=== PATIENT | female | born 1990 | race Caucasian/White ===

== ENCOUNTER 2017-10-02 21:50 | Emergency (ER) | payer OTHER ==
[~2017-10-02] VITALS: Ht 154.9 cm; Wt 72.6 kg
[~2017-10-02 21:50] MED LIST: ATIVAN0.5 MG PO; CIPRO 500MG TA500 MG PO; FLAG500 PO; HYDROCODONE/ACE1 TA1 PO; LEVSIN/SL0.125 MG SL; PERCOCET 325 MG1 TA2 PO; PERCOCET 5-3251 EACH PO; PREDNISONE 20MG20 MG PO; ZOFRAN ODT4 M1 SL; ZOFRAN4 M1 SL
--- NOTE | 2017-10-02 21:58 | ED GI/GU/ABDOMINAL COMPLAINT ---
History of Present Illness General Chief Complaint: Abdominal Pain/Flank Pain Stated Complaint: 10 WEEKS PREG, RIGHT SIDED ABD PAIN Source: patient Exam Limitations: no limitations Vital Signs & Intake/Output Vital Signs & Intake/Output Vital Signs Date Time Temp Pulse Resp B/P B/P Pulse O2 O2 Flow FiO2 Mean Ox Delivery Rate 10/026 98.9 108 18 151/92 96 Room Air ED Intake and Output 10/03 0000 10/02 1200 Intake Total Output Total 250 Balance -250 Output, 50 Emesis Output, Urine 200 Patient 160 lb Weight Weight Reported by Patient Measurement Method Allergies Coded Allergies: Sulfa (Sulfonamide Antibiotics) (HIVES 02/12/17) amoxicillin (HIVES 02/12/17) azithromycin (HIVES 02/12/17) cefixime (HIVES 02/12/17) Reconcile Medications Ondansetron (Zofran Odt) 4 MG TAB.RAPDIS 1 TAB SL TID nausea Oxycodone HCl/Acetaminophen (Percocet 5-325 MG Tablet) 5 MG-325 MG TABLET 1-2 TAB PO Q6P PRN pain Triage Note: PT TO ER C/C RLQ PAIN X 30 MINS, +N/V. PAIN RADIATING TO BACK. PT IS 10 WEEKS D/D 04/27/2018. OBGYN: [facility] Triage Nurses Notes Reviewed? yes ? y Is pt currently ? No Onset: Abrupt Duration: minute(s): (45) Timing: no prior history Quality/Severity: sharpness, stabbing Severity Numbers: 10 Location: right lower quadrant Radiation: flank Activities at Onset: none Prior Abdominal Problems: none Past Sexual History: Unobtainable at this time Sexually Active: Yes Last Time You Were Sexual: less than 2 months ago Sexual Orientation: Heterosexual Use of Protection: No Modifying Factors: Worsens With: movement, palpation. HPI: Patient is a 27-year-old female currently 10 weeks with first presenting to the emergency Department chief complaint sudden onset of her lower quadrant abdominal pain that radiates to the right flank going on for the past 45 minutes. Positive nausea with vomiting. No fevers, positive chills. Child taking diglegis with little to no relief and nausea. see womens health. No blood in emesis. Denies diarrhea. No history of similar symptoms in the past. Denies any urinary frequency urgency dysuria or hematuria. (Miriam Reynaga) Past History Travel History Traveled to [place] past 21 day No Medical History Any Pertinent Medical History? 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 Hx Contributory? No (Miriam Reynaga) Review of Systems Review of Systems Constitutional: Reports: no symptoms. Comments Review of systems: See HPI, All other systems negative. Constitutional, no fever or weight loss HEENT: No visual changes no sore throat no congestion Cardiovascular: No chest pain ,palpitation Skin, no jaundice no rashes Respiratory: No dyspnea cough sputum or hemoptysis GI: No diarrhea : No dysuria No hematuria Muscle skeletal: no back pain, no neck pain, Neurologic: No numbness no confusion no headaches Psych: No stress anxiety or depression,. Heme/endocrine: No bruising no bleeding no polyuria or polydipsia Immunology: No splenectomy or history of AIDS (Miriam Reynaga) Physical Exam Physical Exam General Appearance: awake, anxious, mild distress Gastrointestinal: soft, tenderness Comments: Well-developed well-nourished person in mild distress HEENT: Atraumatic, normocephalic Neck: Normal inspection Back: Nontender, no CVA tenderness. Cardiovascular: Regular rate and rhythms no murmurs rubs or gallops Respiratory: Chest nontender. No respiratory distress.breath sounds clear to auscultation bilaterally Abdomen: Soft, significant tenderness to palpation over the right flank, right lower quadrant with guarding, nondistended, no appreciable organomegaly. Normal bowel sounds. No ascites Extremity: No edema Neuro: Alert oriented x3 Skin: No appreciable rash on exposed skin, skin is warm and dry. Psych: Mood and affect is normal, memory and judgment is normal. Core Measures ACS in differential dx? No Sepsis Present: No Sepsis Focused Exam Completed? No (Miriam Reynaga) Progress Differential Diagnosis: appendicitis, ovarian cyst, ovarian torsion, UTI/pyelo, ovarian origin Plan of Care: Orders Procedure Date/time Status URINALYSIS 10/02 2157 Complete HUMAN BETA HCG TITRE 10/02 2157 Complete COMPREHENSIVE METABOLIC PANEL 10/02 2157 Complete CBC WITHOUT DIFFERENTIAL 10/02 2157 Complete Current Medications Sig/Sandra Start time Last Medication Dose Stop Time Status Admin Ondansetron HCl 4 MG ONCE ONE 10/03 29 UNVr 10/03 (Zofran) 10/03 0031 0045 Sodium Chloride 1,000 ML BOLUS ONE 10/03 29 UNVr 10/03 (Normal Saline 0.9%) 10/03 0129 0045 Laboratory Tests 10/02/172221: Urine Color YEL, Urine Clarity CLEAR, Urine pH 6.0, Ur Specific [place] 1.025, Urine Protein NEG, Urine Ketones NEG, Urine Nitrite NEG, Urine Bilirubin NEG, Urine Urobilinogen 0.2, Ur Leukocyte Esterase NEG, Ur Microscopic EXAM NOT REQUIRED, Urine Hemoglobin NEG, Urine Glucose NEG 10/02/172204: Anion Gap 14, Estimated GFR > 60, BUN/Creatinine Ratio 16.0, Glucose 89, Calcium 10.1, Total Bilirubin 0.3, AST 18, ALT 30, Alkaline Phosphatase 57, Total Protein 7.1, Albumin 4.2, Globulin 2.9, Albumin/Globulin Ratio 1.4, Beta HCG, Quant 75717.0, CBC w Diff NO MAN DIFF REQ, RBC 4.40, MCV 89.1, MCH 30.6, MCHC 34.4, RDW 12.3, MPV 7.4, Gran % 65.0, Lymphocytes % 26.9, Monocytes % 7.1, Eosinophils % 0.7, Basophils % 0.3, Absolute Granulocytes 7.7 H, Absolute Lymphocytes 3.2, Absolute Monocytes 0.8 H, Absolute Eosinophils 0.1, Absolute Basophils 0 On arrival patient in mild distress, she does have right lower quadrant pain is reproducible on exam. Patient afebrile. No CVA tenderness on exam. Considering appendicitis, ovarian torsion or cyst, kidney stone. Patient will go for ultrasound to rule out ovarian torsion. IV fluids and IV Zofran initiated. 10/03/2017 12:41:01 AM and reevaluation patient appears much more calm, no longer dry heaving. Patient still has mild to moderate reproducible pain in the right lower quadrant with palpation. Slight elevation in white blood cell count to 11. No shift. Pending ultrasound results at this time. Diagnostic Imaging: Viewed by Me: Ultrasound. Discussed w/RAD: Ultrasound. Initial ED EKG: none Hand-Off Endorsed To: Go Oliveros MD Endorsed Time: 99 Pending: ultrasound (Soren ALVARADO,Miriam) Radiology Impression: PATIENT: PRATIBHA BULLARD PRESENT AGE: 27 PATIENT ACCOUNT NO: [id number] : 92 LOCATION: [facility] ORDERING PHYSICIAN: Miriam ALVARADO SERVICE DATE: 10/02/17 EXAM TYPE: US - US TRANSVAG EXAMINATION: US TRANSVAGINAL CLINICAL INFORMATION: Abdominal pain. COMPARISON: None TECHNIQUE: Transabdominal and endovaginal sonographic evaluation of the pelvis. Endovaginal examination performed for improved visualization due to bowel gas. Doppler evaluation with spectral analysis performed. FINDINGS: The uterus measures 9 x 7.3 x 7.4 cm. There is an intrauterine gestational sac. A pole is present. Normal movements are seen. No yolk sac present. There is a crown-rump length of 3.39 cm corresponding to a gestational age by ultrasound of 10 weeks 3 days. This yields an estimated date of delivery of 04/27/2018. Normal heart rate at 167 bpm. Both ovaries are visualized, although visualization of the left ovary is limited due to bowel gas. The right ovary measures 3 x 2.9 x 2.2 cm. The left ovary measures 3 x 2 x 2 cm. Normal arterial and venous spectral waveforms of the right ovary. Limited evaluation of the left ovarian vasculature. No free fluid in the cul-de-sac. IMPRESSION: 1. Single live intrauterine . Gestational age by ultrasound of 10 weeks 3 days. 2. Limited evaluation of the left ovary due to bowel gas. Symmetric size of the ovaries. The right ovarian vasculature is unremarkable. The left ovarian vasculature is not well demonstrated. Given the symmetry of size of the ovaries, torsion is unlikely. DICTATED BY: Behzad Pulliam MD DATE/TIME DICTATED:10/03/1752 TAXATION INSPECTOR:SMOOTH DATE/TIME TRANSCRIBED:10/03/1752 CONFIDENTIAL, DO NOT COPY WITHOUT APPROPRIATE AUTHORIZATION. <Electronically signed in Other Vendor System> SIGNED BY: Behzad Pulliam MD 10/03/1758 (Domo SINGH,Go Stuart) Departure Departure Condition: Stable Clinical Impression Primary Impression: Abdominal pain Qualifiers: Abdominal location: right lower quadrant Qualified Code: R10.31 - Right lower quadrant pain Referrals: Eligio SINGH,Theron Springer (PCP/Family) Departure Forms: Customer Survey General Discharge Information (Miriam Reynaga) Departure Disposition: OTHER [facility] (AC[facility]) PA/ACADEMIC RECORDS SPECIALIST Co-Sign Statement Statement: ED Attending supervision documentation- [X] I saw and evaluated the patient. I have also reviewed all the pertinent lab results and diagnostic results. I agree with the findings and the plan of care as documented in the PA's/ACADEMIC RECORDS SPECIALIST's documentation. [X] I have reviewed the ED Record and agree with the PA's/ACADEMIC RECORDS SPECIALIST's documentation. [] Additions or exceptions (if any) to the PAs/ACADEMIC RECORDS SPECIALIST's note and plan are summarized below: [PT TO BE TRANSFERED TO [facility] FOR MRI AND SURGICAL CONSULTATION. D/W DR. HARMAN, [facility].] (Domo SINGH,Go Stuart)
[2017-10-02 22:44] LABS: ABSOLUTE BASOPHIL COUNT 0 /CUMM (0.0-0.2); ABSOLUTE EOSINOPHIL COUNT 0.1 /CUMM (0.0-0.7); ABSOLUTE GRANULOCYTE CT 7.7 /CUMM (1.4-6.5); ABSOLUTE LYMPH COUNT 3.2 /CUMM (1.2-3.4); ABSOLUTE MONOCYTE COUNT 0.8 /CUMM (0.10-0.60); BASOPHIL % 0.3 % (0.0-2.0); EOSINOPHIL % 0.7 % (0-5); HEMATOCRIT 39.2 % (37-47); MEAN CORPUSCULAR HGB 30.6 PG (27.0-31.0); MEAN CORPUSCULAR HGB CONC 34.4 G/DL (33.0-37.0); MEAN CORPUSCULAR VOLUME 89.1 FL (81.0-99.0); MEAN PLATELET VOLUME 7.4 FL (7.4-10.4); PLATELET COUNT 275 /CUMM (130-400); RBC DISTRIBUTION WIDTH 12.3 % (11.5-14.5); WHITE BLOOD CELL COUNT 11.8 /CUMM (4.8-10.8)
--- NOTE | 2017-10-03 00:59 | ULTRASOUND REPORT ---
EXAMINATION: US TRANSVAGINAL CLINICAL INFORMATION: Abdominal pain. COMPARISON: None TECHNIQUE: Transabdominal and endovaginal sonographic evaluation of the pelvis. Endovaginal examination performed for improved visualization due to bowel gas. Doppler evaluation with spectral analysis performed. FINDINGS: The uterus measures 9 x 7.3 x 7.4 cm. There is an intrauterine gestational sac. A pole is present. Normal movements are seen. No yolk sac present. There is a crown-rump length of 3.39 cm corresponding to a gestational age by ultrasound of 10 weeks 3 days. This yields an estimated date of delivery of 04/27/2018. Normal heart rate at 167 bpm. Both ovaries are visualized, although visualization of the left ovary is limited due to bowel gas. The right ovary measures 3 x 2.9 x 2.2 cm. The left ovary measures 3 x 2 x 2 cm. Normal arterial and venous spectral waveforms of the right ovary. Limited evaluation of the left ovarian vasculature. No free fluid in the cul-de-sac. IMPRESSION: 1. Single live intrauterine . Gestational age by ultrasound of 10 weeks 3 days. 2. Limited evaluation of the left ovary due to bowel gas. Symmetric size of the ovaries. The right ovarian vasculature is unremarkable. The left ovarian vasculature is not well demonstrated. Given the symmetry of size of the ovaries, torsion is unlikely.
[2017-10-03 01:34] VITALS: BP 123/64
[2017-10-03] MEDS ORDERED: PRENATAL MULTI1 EAC2 PO (01:37)
== END 2017-10-03 01:48 | disposition short-term general hospital (02) ==
LOC: ERH 21:50
PROVIDERS: Physician Assistant
DX: O99.89 Other specified diseases and conditions complicating pregnancy, childbirth and the puerperium (principal); R10.30 Lower abdominal pain, unspecified; Z3A.10 10 weeks gestation of pregnancy
CPT/HCPCS: 76817; 81003; 96361; 96374; 96376; J2405

== ENCOUNTER 2018-04-30 11:50 | Inpatient (IN) | payer OTHER ==
[~2018-04-30] VITALS: Ht 154.9 cm; Wt 83.9 kg
[~2018-04-30 11:50] MED LIST changes: +PRENATAL MULTI1 EAC2 PO
[2018-04-30 14:36] LABS: ABSOLUTE BASOPHIL COUNT 0 /CUMM (0.0-0.2); ABSOLUTE EOSINOPHIL COUNT 0 /CUMM (0.0-0.7); ABSOLUTE GRANULOCYTE CT 8.8 /CUMM (1.4-6.5); ABSOLUTE LYMPH COUNT 2.2 /CUMM (1.2-3.4); ABSOLUTE MONOCYTE COUNT 0.8 /CUMM (0.10-0.60); BASOPHIL % 0.3 % (0.0-2.0); EOSINOPHIL % 0.3 % (0-5); HEMATOCRIT 36.5 % (37-47); MEAN CORPUSCULAR HGB 28.9 PG (27.0-31.0); MEAN CORPUSCULAR HGB CONC 33.6 G/DL (33.0-37.0); MEAN CORPUSCULAR VOLUME 85.9 FL (81.0-99.0); MEAN PLATELET VOLUME 8.8 FL (7.4-10.4); PLATELET COUNT 216 /CUMM (130-400); RBC DISTRIBUTION WIDTH 13.9 % (11.5-14.5); RED BLOOD CELL CT 4.25 /CUMM (4.20-5.40); WHITE BLOOD CELL COUNT 11.9 /CUMM (4.8-10.8)
--- NOTE | 2018-04-30 16:44 | History & Physical ---
General Information and HPI MD Statement: I have seen and personally examined PRATIBHA BULLARD and documented this H&P. The patient is a 27 year old female at [40] weeks and [3] days gestation who presented with a chief complaint of [LOF]. Source of Information: patient Exam Limitations: no limitations History of Present Illness: 27YO, 40 3/7wks, c/o LOF since 10:30AM. with some cramping pain. denies VB , reports GFM. amnisure positive. care started at 7 + wks. complicated by polyhydramnios, GBS positive Allergies/Medications Allergies: Coded Allergies: hyoscyamine (From URIBEL) (Mild, pt states mild does not remember 04/30/18) methenamine (From URIBEL) (Mild, pt states mild does not remember 04/30/18) methylene blue (From URIBEL) (Mild, pt states mild does not remember 04/30/18) salicylates (From URIBEL) (Mild, pt states mild does not remember 04/30/18) sodium phosphate (From URIBEL) (Mild, pt states mild does not remember 04/30/18) Sulfa (Sulfonamide Antibiotics) (HIVES 02/12/17) amoxicillin (HIVES 02/12/17) azithromycin (HIVES 02/12/17) cefixime (HIVES 02/12/17) Home Med list Pnv No.122/Iron/Folic Acid ( Multi Tablet) 27 MG IRON-800 MCG TABLET 1 TAB PO DAILY (Reported) 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 Psychosocial History Where do you live? Home Smoking Status: Never Smoked ETOH Use: denies use Illicit Drug Use: denies illicit drug use Review of Systems Review of Systems Constitutional: Reports: no symptoms. EENTM: Reports: no symptoms. Cardiovascular: Reports: no symptoms. Respiratory: Reports: no symptoms. GI: Reports: no symptoms. Genitourinary: Reports: see HPI. Musculoskeletal: Reports: no symptoms. Skin: Reports: no symptoms. Neurological/Psychological: Reports: no symptoms. Hematologic/Endocrine: Reports: no symptoms. Immunologic/Allergic: Reports: no symptoms. All Other Systems: Reviewed and Negative Exam & Diagnostic Data Last 24 Hrs of Vital Signs/I&O Intake & Output 04/30 1600 04/30 0800 04/30 0000 Intake Total Output Total Balance Patient 83.915 kg Weight Obstetric Exam Wgt Gained During : 28 lbs Pelvimetry: adequate Dilation (cm): 2 Effacement (%): 70 Station: -2 Membranes: SROM Fluid: clear Fundal Height (cm): 40 Multiple Gestation? No Contractions: irregular Infant #1 - FHR Baseline: 140 Category: 1 Estimated Weight: 8lb4oz Presentation: vertex Patient for Induction? No Physical Exam: VSS General: NAD Abdomen; gravid, soft, nontender. Ext: DCT (-) Labs Blood Type & Rh: O positive Antibody Screen: negative Hct/Hgb & Platelets #1: 13.6/41.5%,PLT [id number] Hct/Hgb & Platelets #2: 11.5/37.5%,[id number] Rubella: non immune VDRL #1: negative VDRL #2: negative HbsAg: negative HIV #1: negative HIV #2 negative 1 Hr P Group B Strep: positive Initial Ultrasound: IUP at 7 6/7wks Anatomy Ultrasound: nl Ultrasound for EFW: 8lb4oz on 04/28/2018 Genetic Testing: nl Last 24 Hrs of Labs/Romero: Laboratory Tests 04/30/18 1425: CBC w Diff NO MAN DIFF REQ, RBC 4.25, MCV 85.9, MCH 28.9, MCHC 33.6, RDW 13.9, MPV 8.8, Gran % 74.0, Lymphocytes % 18.7 L, Monocytes % 6.7, Eosinophils % 0.3, Basophils % 0.3, Absolute Granulocytes 8.8 H, Absolute Lymphocytes 2.2, Absolute Monocytes 0.8 H, Absolute Eosinophils 0, Absolute Basophils 0 04/30/18 1300: Urinalysis LIGHT H, Urine Color YEL, Urine Clarity CLDY H, Urine pH 8.0, Ur Specific [place] 1.020, Urine Protein 100 H, Urine Ketones NEG, Urine Nitrite NEG, Urine Bilirubin NEG, Urine Urobilinogen 0.2, Ur Leukocyte Esterase NEG, Ur Microscopic SEDIMENT EXAMINED, Urine RBC 50-75 H, Urine WBC 1-3 H, Ur Epithelial Cells MANY H, Urine Bacteria MANY H, Urine Hemoglobin LARGE H, Urine Glucose NEG 04/30/18 1210: Membrane Rupture POSITIVE Assessment/Plan Assessment/Plan: 27yo, 40 3/7wks, SROM, polyhydramnios 1. admit pt, admission labs 2. antibiotics for GBS prophylaxis 3. monitor closely, may consider pitocin augmentation As Ranked By This Provider Problem List: 1. 2. Polyhydramnios 3. SROM (spontaneous rupture of membranes) Core Measures Venous Thromboembolism VTE Risk Factors / No Mechanical VTE Prophylaxis d/t LowRisk-No Interven Req'd No VTE Pharm Prophylaxis d/t LowRisk-No Interven Req'd Attending MD Review Statement Attending Statement Attending MD Statement: examined this patient, discussed with family, discussed w/nursing
--- NOTE | 2018-04-30 20:16 | PN- OBGYN ---
Surgical Brief Attending Note Brief Attending Note: pt c/o ctxs pain, request pain management on TOCO: ctxs q 3-4 min, FHR cat I cervix 3 cm/80%/-2 ( by RN) [ain management options d/w pt, she understand, choose to have nitrous oxide for now, will consider epidural later, will monitor closely
--- NOTE | 2018-04-30 22:44 | PN- OBGYN ---
Surgical Brief Attending Note Brief Attending Note: called by nurse for decels. pt is comfortable with epidural, no complaints. IV infiltrated on TOCO: ctxs q2-5 min, FHR [id number], moderate variability,variable decels to 80s last 1 min, then return to baseline. cervix 5-6 cm/90%/-2 ( per RN) will IV bolus, left lateral , give O2, monitor closely.
--- NOTE | 2018-05-01 06:04 | PN- OBGYN ---
Surgical Brief Attending Note Brief Attending Note: pt is fully dilated at 4: 30AM, started pushing, good effort, but presention part is not descenting,after pushing 1 hour, vertex at 0 station,OP position, maternal Temperature 100.7, FH baseline 170, Due to arrest of descent , c- section d/w pt, she understand and agreed, R/B of d/w pt, all questions answered, OR team called.
--- NOTE | 2018-05-01 08:47 | Operative Report ---
Operative/Inv Procedure Report Surgery Date: 05/01/18 Name of Procedure: Primary low transverse section Via Pfannenstiel Pre-Operative Diagnosis: G2 para 0 at 40 weeks 4 days intrauterine , polyhydramnios, spontaneous rupture of membranes, arrest of descent, clinical chorio amnionitis Post-Operative Diagnosis: same Estimated Blood Loss: 800ml Surgeon/Medical Customer Service Representative: Anand SINGH,Albert Oconnell Anesthesia: epidural IV Fluids: Lactated Ringer's Urine Output: 300 mL of clear urine and in the procedure Specimens: Placenta Complications: None Condition: Stable Operative Indication: 27-year-old G2 para 0 at 40 weeks 4 days intrauterine , spontaneous rupture membrane since 10 AM 04/30/2018, maternal temperature 100.7, arrest of descent. Operative/Procedure Note Note: The patient was taken to the operating room where epidural anesthesia was found to be adequate. She was then prepared and draped in the normal sterile fashion in the dorsosupine position with a leftward tilt. A Pfannenstiel skin incision was then made with a scalpel and carried through to the underlying layer of the fascia with the Bovie. The fascia was incised in the midline and incision extended laterally with the Collins scissors. This inferior aspect of this fascial incision was grasped with the Delma clamps, elevated, and the underlying rectus muscle dissected off with Collins scissors. Attention was then turned to the superior aspect of this fascial incision which, in a similar fashion, was grasped, tented up with the Delma clamps, and the rectus muscle dissected off with Collins scissors. The rectus muscle was then in the midline, and the peritoneum identified, and entered bluntly. The peritoneum incision was then extended superiorly and inferiorly with good visualization of the bladder. The bladder blade was then inserted and the vesicouterine peritoneum identified, grasped with the pickups and entered sharply with the Metzenbaum scissors. The incision was then extended laterally and the bladder flap created digitally. The bladder blade was then reinserted and the lower uterine segment incised in a transverse fashion with the scalpel. The uterine incision was then extended laterally. The bladder blade was removed and the head delivered atraumatically. The mouth and nose was suctioned with the suction bulb and the cord clamped and cut. The infant was handed off to the waiting pediatricians. The placenta was then removed manually, and the uterus is exteriorized, and clear of all clots and debris. The uterine incision was then repaired with 0 Vicryl in a running locked fashion. A second layer of the same suture was used to achieve excellent hemostasis. The uterus returned into the abdomen. The gutters were cleared of all clots, 3g Spencer was placed at the uterine incision line. The peritoneum closed with 3-0 Vicryl, rectus muscle was reapproximated with 2-0 Vicryl. The fascia was reapproximated with 0 Vicryl in a running fashion. Subcutaneous adipose tissue was reapproximated with 3 -O plain suture. The skin was closed with 4-0 Monocryl subcuticularly. The patient tolerated the procedure well. Sponge, laps and needles counts were correct 2. Patient was taken to the recovery room in stable condition. Findings: Viable female infant in cephalic presentation, OP position, invertebrate paleontologist present at delivery, weight 3525g, 9/9. Normal uterus tubes and ovaries.
[2018-05-02 03:59] VITALS: BP 121/58
[2018-05-02 08:58] LABS: ABSOLUTE BASOPHIL COUNT 0 /CUMM (0.0-0.2); ABSOLUTE EOSINOPHIL COUNT 0 /CUMM (0.0-0.7); ABSOLUTE GRANULOCYTE CT 12.7 /CUMM (1.4-6.5); ABSOLUTE LYMPH COUNT 1.7 /CUMM (1.2-3.4); BASOPHIL % 0.2 % (0.0-2.0); EOSINOPHIL % 0.1 % (0-5); MEAN CORPUSCULAR HGB 28.8 PG (27.0-31.0); MEAN CORPUSCULAR HGB CONC 33.6 G/DL (33.0-37.0); MEAN CORPUSCULAR VOLUME 85.5 FL (81.0-99.0); MEAN PLATELET VOLUME 8.5 FL (7.4-10.4); PLATELET COUNT 170 /CUMM (130-400); RED BLOOD CELL CT 3.48 /CUMM (4.20-5.40); WHITE BLOOD CELL COUNT 15.5 /CUMM (4.8-10.8)
[2018-05-02 09:00] LABS: HEMATOCRIT 29.8 % (37-47)
--- NOTE | 2018-05-02 11:49 | PN- OBGYN ---
Surgical Brief Attending Note Brief Attending Note: pt feeling well. amb / void / vargas po. +flatus. no void yet (arteaga just d/c'd). pain well controlled. +bf. afeb, v/ss nad abd soft nt nd ff inc c/d/i amy min lochia ext nt +1 b/l le ed a/p pod 1 s/p c/s, on a/g/c for chorio, doing well -d/c abx -cont main mgmt -enc oob / amb -void check -routine pop care
--- NOTE | 2018-05-03 11:01 | PN- Post Delivery/GYN ---
Subjective Subjective: feeling well Review of Systems Constitutional: Denies: chills, fever. EENTM: Denies: blurred vision, double vision, visual changes. Cardiovascular: Denies: chest pain. Respiratory: Denies: cough. Gastrointestinal: Denies: abdominal pain, diarrhea, nausea, vomiting. Objective Last 24 Hrs of Vital Signs/I&O vss afebrile Physical Exam General Appearance Alert, Oriented X3, Cooperative, No Acute Distress Skin No Rashes, No Breakdown Cardiovascular Regular Rate Lungs Clear to Auscultation Abdomen Soft, incision clean and dry Pelvic (FEMALE) lochia serosanganous Current Medications: Current Medications Sig/Sandra Start time Last Medication Dose Route Stop Time Status Admin Acetaminophen 1,000 MG Q6P PRN 05/01 0845 GA 05/01 N/A 1 UNIT IV 2026 Acetaminophen 650 MG Q4P PRN 05/01 0815 05/03 PO 39 Bisacodyl 10 MG DAILY NEEDED PRN 05/01 0815 VA Clindamycin 900 MG Q8H 05/01 2300 GA 05/02 Dextrose/Water 50 ML IV 0646 Diphenhydramine HCl 25 MG Q6P PRN 05/01 1200 DC IV Docusate Sodium 100 MG AT BEDTIME PRN 05/01 0815 05/02 PO 2028 Enoxaparin Sodium 40 MG 1900 05/01 1900 05/02 SC 202 Gentamicin Sulfate 80 MG Q8H 05/02 0845 GA 05/02 Sodium Chloride 100 ML IV 0912 Ibuprofen 800 MG Q6P PRN 05/01 0815 05/03 PO 0939 Ketorolac 30 MG Q6P PRN 05/01 1200 DC 05/02 Tromethamine IV 05/02 1159 0647 Lactated Ringer's 1,000 ML Q8H 05/01 0815 GA 05/02 IV 0330 Metoclopramide HCl 10 MG Q6P PRN 05/01 1200 DC IV Naloxone HCl 0.2 MG DAILY PRN 05/01 1145 DC IV Oxycodone/ 0 .STK-MED ONE 05/02 1640 DC Acetaminophen PO Oxycodone/ 1 TAB Q4P PRN 05/01 0815 AC 05/03 Acetaminophen PO 0246 Oxycodone/ 2 TAB Q4P PRN 05/01 0815 AC Acetaminophen PO Simethicone 80 MG Q6P PRN 05/02 2015 AC 05/03 PO 0246 Imaging Findings: staoh coagulase negative on placenta peds informed Assessment/Plan Assessment/Plan pod #2 vss afebrile repeat cbc in am Problem List: 1. SROM (spontaneous rupture of membranes) Attending MD Review Statement Attending Statement Attending MD Statement: examined this patient, discussed with family, discussed with nursing
[2018-05-04] MEDS ORDERED: IBUPROFEN800 M1 PO (08:56)
--- NOTE | 2018-05-04 09:01 | PN- OBGYN ---
Surgical Brief Attending Note Brief Attending Note: POD#3 pt is ambulating, no complaints PE: VSS CV RRR Lungs CTA B/L Abdomen: soft, nontender, uteryus firm, fundus below umbilicus, incision D/C/I, Lochia mild. Ext: DCT (-) A/P: 27yo, s/p PLTCS,POD#3 1. encourage ambulation and 2.pain management as needed 3. will d/c home, f/u in office in 2wks and 6 wks. discharge instructions given, she understand.
--- NOTE | 2018-05-04 09:40 | Discharge Summary ---
Visit Information Visit Dates Admission Date: 04/30/18 Discharge Date: 05/04/2018 Hospital Course Course Attending Physician: Albert Michel MD Primary Care Physician: Theron Del Valle MD Hospital Course: 27yo, 40 4/7wks, she was admitted for SROM on 04/30/2018, she had PLTCS due to arrest of decent on05/01/2018, delivered a viable female without complications. During the hospital stay, she remained in stable condition, tolerate diet, void without difficulties. ambulating well. vitals are WNL, afebrile. uterues firm, funduns below umbilicus. incision D/C/I. lochia mild. she was discharged on 05/04/2018 with instructions given. Complications: none Allergies: Coded Allergies: hyoscyamine (From [facility]) (Mild, pt states mild does not remember 04/30/18) methenamine (From [facility]) (Mild, pt states mild does not remember 04/30/18) methylene blue (From [facility]) (Mild, pt states mild does not remember 04/30/18) salicylates (From [facility]) (Mild, pt states mild does not remember 04/30/18) sodium phosphate (From [facility]) (Mild, pt states mild does not remember 04/30/18) Sulfa (Sulfonamide Antibiotics) (HIVES 02/12/17) amoxicillin (HIVES 02/12/17) azithromycin (HIVES 02/12/17) cefixime (HIVES 02/12/17) Significant Procedures: PLTCS Disposition Summary Disposition Principal Diagnosis: 40 4/7wks, SROM, poly hydramnios. arrest of decent, clinical chorioamnitis. Additional Diagnosis: same Discharge Disposition: home or self care Discharge Instructions General Discharge Information Code Status: Full Code Patient's Diet: regular Patient's Activity: as tolearted Follow-Up Instructions/Appts: f/u in office in 2 wks and 6 wks Medications at Discharge Discharge Medications: Continue taking these medications: Pnv No.122/Iron/Folic Acid ( Multi Tablet) 27 MG IRON-800 MCG TABLET 1 Tablet ORAL DAILY Start taking the following new medications: Ibuprofen (Ibuprofen) 800 MG TABLET 800 Milligram ORAL EVERY SIX HOURS NEEDED as needed for UTERINE CRAMPING Qty = 30 No Refills Copies To: Albert Michel MD Attending MD Review Statement Documenting Attending: Albert Michel MD
== END 2018-05-04 11:25 | DRG 540 ==
LOC: CBCO 11:50 → GNO 12:33
PROVIDERS: Obstetrics & Gynecology
PROC: 10D00Z1 Extraction of Products of Conception, Low, Open Approach (ICD-10-PCS; principal; 2018-05-01)
DX: O32.4XX0 Maternal care for high head at term, not applicable or unspecified (principal); O75.2 Pyrexia during labor, not elsewhere classified; Z3A.40 40 weeks gestation of pregnancy; Z37.0 Single live birth; O76 Abnormality in fetal heart rate and rhythm complicating labor and delivery; O99.824 Streptococcus B carrier state complicating childbirth; O41.1290 Chorioamnionitis, unspecified trimester, not applicable or unspecified; Z88.1 Allergy status to other antibiotic agents; Z88.2 Allergy status to sulfonamides; Z88.8 Allergy status to other drugs, medicaments and biological substances; O40.9XX0 Polyhydramnios, unspecified trimester, not applicable or unspecified
CPT/HCPCS: 87070; 87075; 87184; 87205; GNOP; GNOS; 36415; 59025; 81001; 84112; 87086; 87147; 96360; G0463; J0131; J1580; J1650; J1885; J3370; J7040; J7120; Q2036